=== PATIENT | female | born 1990 | race Caucasian/White ===

== ENCOUNTER 2017-05-15 21:17 | Emergency (ER) | payer OTHER ==
[~2017-05-15] VITALS: Ht 170.2 cm; Wt 54.2 kg
[~2017-05-15 21:17] MED LIST: PRENCAP6 PO
[2017-05-15 21:19] VITALS: BP 125/67; PULSE 88; RESP 18; TEMP 98.6; O2SAT 100
[2017-05-15] MEDS ORDERED: AMOX875T PO (21:58)
[2017-05-15] MEDS ORDERED: PRED20 PO (21:58)
[2017-05-15] MEDS ORDERED: AMOXICILLIN 875 MG TAB PO ONE (22:00)
[2017-05-15] MEDS ORDERED: IBUPROFEN 800 MG TAB PO ONE (22:00)
--- NOTE | 2017-05-15 22:01 | PD ---
HPI Chief Complaint: ENT Complaint Time Seen by Provider: 21:40 Travel History International Travel<30 days: No Contact w/Intl Traveler<30days: No Traveled to known affect area: No History of Present Illness HPI 27-year-old female that presents to the ED for evaluation of pressure to her right ear. Per patient she's had the pressure past 2 days. Per patient was really painful, pressure-like. She states having congestion and runny nose for some time. She states that all her kids at home have been sick and she is the last one to have it. States having no cough any more. Per patient she did take some Tylenol with some relief but she continues to have the pressure which is was concerning for her. The fevers chills or sweats. No back pain. No urinary issues. Pain per patient is 6 out of 10 and is pressure-like. PFSH Past Medical History Medical History: Denies Significant Hx Diminished Hearing: No Immunizations Current: Yes Tetanus Vaccination: > 5 Years Influenza Vaccination: No ?: Not LMP: 03/24/2017 : 1 Para: 0 Past Surgical History Surgical History: No Previous Surgery Social History Alcohol Use: Yes (OCC A GLASS OF WINE) Tobacco Use: Yes (1 PACK/WEEK) Substance Use: No Allergies-Medications (Allergen,Severity, Reaction): Coded Allergies: No Known Allergies (Verified Adverse Reaction, Unknown, 05/15/17) Reported Meds & Prescriptions Reported Meds & Active Scripts Active Amoxicillin 875 Mg Tab 875 Mg PO BID 10 Days Prednisone 20 Mg Tab 20 Mg PO BID 5 Days Review of Systems Except as stated in HPI: all other systems reviewed are Neg Physical Exam Narrative GENERAL: Well-nourished, well-developed patient in no apparent distress. SKIN: Warm and dry. HEAD: Atraumatic. Normocephalic. EYES: Pupils equal and round reactive to light and accommodation. No scleral icterus. No injection or drainage. ENT: No nasal bleeding or discharge. Mucous membranes pink and moist. Right TM is red and swollen. Left TM is clear. No mastoid tenderness. Ear canals are intact bilaterally. No lymphadenopathy. Nostril mucosa is red and moist with clear mucus noted. No sinus tenderness to palpation noted. Tonsils are not enlarged or swollen. No ulvua Deviation. Tongue is midline. NECK: Trachea midline. No JVD. No meningeal signs noted CARDIOVASCULAR: Regular rate and rhythm. RESPIRATORY: No accessory muscle use. Clear to auscultation. Breath sounds equal bilaterally. GASTROINTESTINAL: Abdomen soft, non-tender, nondistended. Hepatic and splenic margins not palpable. MUSCULOSKELETAL: Extremities without clubbing, cyanosis, or edema. No obvious deformities. NEUROLOGICAL: Awake and alert. No obvious cranial nerve deficits. Motor grossly within normal limits. Five out of 5 muscle strength in the arms and legs. Normal speech. PSYCHIATRIC: Appropriate mood and affect; insight and judgment normal. Data Data Last Documented VS Vital Signs Date Time Temp Pulse Resp B/P (MAP) Pulse Ox O2 Delivery O2 Flow Rate FiO2 05/15/17 21:19 98.6 88 18 125/67 (86) 100 Orders Orders Amoxicillin (Trimox) (05/15/17 22:00) Ibuprofen (Motrin) (05/15/17 22:00) Ed Discharge Order (05/15/17 21:49) [facility] Medical Decision Making Medical Screen Exam Complete: Yes Emergency Medical Condition: Yes Medical Record Reviewed: Yes Differential Diagnosis Otitis media versus otitis externa versus sinusitis Narrative Course 27-year-old female that presents to the ED for evaluation of right ear pain. Patient was properly examined and was found to have signs and symptoms consistent with otitis media. She will be treated with amoxicillin and prednisone. Patient was given first dose of amoxicillin here and Motrin. Follow with PCP. See ED worsening symptoms. Take OTC medicines as needed. Diagnosis Primary Impression: Otitis media Qualified Codes: H66.001 - Acute suppurative otitis media without spontaneous rupture of ear drum, right ear Patient Instructions: General Instructions Additional Instructions: Motrin and Tylenol for pain and fever. You can use [id number] antihistamine as well as well as Mucinex as needed for runny nose and congestion. Cough drops for cough as needed. Drink plenty of fluids. Follow-up with PCP. See ED for worsening symptoms. Med/Other Pt SpecificInfo: Prescription(s) given Scripts Amoxicillin (Amoxicillin) 875 Mg Tab 875 MG PO BID for Infection for 10 Days, #20 TAB 0 Refills Prov: Olegario Jewell MD 05/15/17 Prednisone (Prednisone) 20 Mg Tab 20 MG PO BID for 5 Days, #10 TAB 0 Refills Prov: Olegario Jewell MD 05/15/17 Disposition: 01 DISCHARGE HOME Condition: Stable Timmy Blankenship May 15, 2017 22:01
== END 2017-05-15 22:05 | disposition home or self-care (01) ==
LOC: PHEFT 21:17
DX: H66.001 Acute suppurative otitis media without spontaneous rupture of ear drum, right ear (principal); F17.200 Nicotine dependence, unspecified, uncomplicated
CPT/HCPCS: 99283